=== PATIENT | female | born 1950 | race Two or more races ===

== ENCOUNTER 2020-12-04 04:17 | Emergency (ER) | payer MEDICARE ==
[~2020-12-04] VITALS: Ht 162.6 cm; Wt 71.7 kg
[2020-12-04 05:23] LABS: Hematocrit 35.3 % (36.0-46.0); Hemoglobin 11.7 g/dL (12.2-16.2); Mean Corpuscular Hemoglobin 28.6 pg (28.0-32.0); Mean Corpuscular Hgb Conc. 33.3 g/dL (32.0-36.0); Mean Corpuscular Volume 85.9 fL (80.0-100.0); Platelet Count (auto) 56 10^3/uL (140-450); Red Cell Distribution Width 15.8 % (11.8-14.3); White Blood Cell 9.8 10^3/uL (4.4-10.8)
[2020-12-04 05:28] LABS: Band Neutrophils % (manual) 0; Basophils % (manual) 0 (0.0-2.0); Blast Cells 0; Metamyelocytes % 0; Myelocytes % 0; Promyelocytes % 0; Reactive Lymphocytes 0
[2020-12-04 05:40] LABS: Albumin 3.5 g/dL (3.4-5.0); Anion Gap 8 (5-15); Blood Urea Nitrogen 11 mg/dL (7-18); Calcium 8.4 mg/dL (8.5-10.1); Carbon Dioxide 23 mmol/L (21-32); Chloride 109 mmol/L (98-107); Glucose 150 mg/dL (74-106); Potassium 3.6 mmol/L (3.5-5.1); Sodium 140 mmol/L (136-145)
[2020-12-04 05:41] LABS: INR 1.11 (0.9-1.15); Partial Thromboplastin Time 27.7 sec (23.0-31.2)
[2020-12-04 05:42] LABS: Alanine Aminotransferase 23 U/L (13-56); Aspartate Aminotransferase 19 U/L (15-37); BUN/Creatinine Ratio 15.9; GFR African American 108 mL/min; GFR Non-African American 89 mL/min
[2020-12-04 05:47] LABS: Alkaline Phosphatase 75 U/L (45-117); Bilirubin, Total 0.5 mg/dL (0.2-1.0); Total Protein 6.9 g/dL (6.4-8.2)
[2020-12-04 05:53] LABS: Eosinophils % (manual) 2 (0-7); Lymphocytes % (manual) 21 (10.0-50.0); Monocytes % (manual) 8 (0-12)
[2020-12-04 06:49] VITALS: BP 143/64
[2020-12-04] MEDS ORDERED: ASPirin 81 mg TAB PO ONE (07:00)
== END 2020-12-04 08:32 | disposition home or self-care (01) ==
LOC: EDBD 04:17 → ER 04:17
DX: R07.89 Other chest pain (principal); F41.9 Anxiety disorder, unspecified; E44.1 Mild protein-calorie malnutrition; E11.9 Type 2 diabetes mellitus without complications; I10 Essential (primary) hypertension; Z68.27 Body mass index [BMI] 27.0-27.9, adult; Z20.822 Contact with and (suspected) exposure to COVID-19
CPT/HCPCS: 36415; 71045; 80053; 83880; 84484; 85007; 85027; 85610; 85730; 87426; 93005

== ENCOUNTER 2021-03-04 18:07 | Emergency (ER) | payer MEDICARE ==
[~2021-03-04] VITALS: Ht 157.5 cm; Wt 81.6 kg
[2021-03-04 18:21] VITALS: BP 150/54
== END 2021-03-04 22:46 | disposition left against medical advice (07) ==
LOC: ER 18:07
DX: K13.79 Other lesions of oral mucosa (principal); Z53.21 Procedure and treatment not carried out due to patient leaving prior to being seen by health care provider

== ENCOUNTER 2023-03-09 13:53 | Inpatient (IN) | payer MEDICARE ==
[~2023-03-09] VITALS: Ht 157.5 cm; Wt 78.5 kg
[2023-03-09] MEDS ORDERED: ASPirin 81 mg TAB PO ONE (14:30)
[2023-03-09 14:33] LABS: INR 1.17 (0.9-1.15); Partial Thromboplastin Time 31.4 sec (24.6-33.4)
[2023-03-09 14:40] LABS: Albumin 4.1 g/dL (3.4-5.0); Calcium 8.5 mg/dL (8.5-10.1); Potassium 4.1 mmol/L (3.5-5.1)
[2023-03-09 14:44] LABS: Hematocrit 39.5 % (36.0-46.0); Hemoglobin 13.3 g/dL (12.2-16.2); Mean Corpuscular Hemoglobin 29.7 pg (28.0-32.0); Mean Corpuscular Hgb Conc. 33.6 g/dL (32.0-36.0); Mean Corpuscular Volume 88.5 fL (80.0-100.0); Red Blood Cells 4.46 10^6/uL (4.0-5.20); Red Cell Distribution Width 14.8 % (11.8-14.3); White Blood Cell 17.5 10^3/uL (4.4-10.8)
[2023-03-09 14:45] LABS: BUN/Creatinine Ratio 10.9 (10.0-20.0); Bilirubin, Total 0.7 mg/dL (0.2-1.0); Total Protein 7.3 g/dL (6.4-8.2)
[2023-03-09 15:03] LABS: Band Neutrophils % (manual) 0; Basophils % (manual) 0 (0.0-2.0); Blast Cells 0; Eosinophils % (manual) 0 (0-7); Metamyelocytes % 0; Myelocytes % 0; Promyelocytes % 0; Reactive Lymphocytes 0
[2023-03-09 15:06] LABS: Lymphocytes % (manual) 14 (10.0-50.0); Monocytes % (manual) 18 (0-12)
[2023-03-09] MEDS ORDERED: NITROGLYCERIN 0.2MG/HR TOPICAL PATCH TD ONE (18:45)
[2023-03-09] MEDS ORDERED: MORPHINE SULFATE INJ 2 MG/ml SYRG IV PRN (18:45)
[2023-03-09] MEDS ORDERED: NITROGLYCERIN 0.4 MG SL TAB SL PRN (18:45)
[2023-03-09] MEDS ORDERED: DEXTROSE (50%) 50ML SYRG IV PRN (18:45)
[2023-03-09] MEDS ORDERED: hydrALAZINE HCL 20 MG/ML VL IV PRN (18:45)
[2023-03-09] MEDS ORDERED: ALBUTEROL SULF 2.5 MG/0.5ML(0.5%) NEB SOLN NEB PRN (19:00)
[2023-03-09] MEDS ORDERED: PANTOPRAZOLE 40 MG/10 ML VIAL INJ IV ONE (19:00)
[2023-03-09] MEDS ORDERED: IPRATROPIUM BROM 0.5 MG/2.5ML INH SOL NEB PRN (19:00)
[2023-03-09] MEDS: SODIUM CHLORIDE 0.9% 1,000 ML IV SCH (19:08)
[2023-03-09] MEDS: METOPROLOL TARTRATE 25 MG TAB PO SCH ×2 (19:08→23:50)
[2023-03-09 19:52] VITALS: BP 136/73
[2023-03-09 19:56] LABS: Cholesterol 88 mg/dL (< 200)
[2023-03-09 19:59] LABS: HDL Cholesterol 21 mg/dL (40-59); LDL Cholesterol 52 mg/dL (< 100); Triglycerides 161 mg/dL (< 150)
[2023-03-09] MEDS: ACCU-CHEK COMFORT CURVE STRIP VI SCH (23:38)
[2023-03-09] MEDS: ATORVASTATIN 20 MG TAB PO SCH (23:41)
[2023-03-09] MEDS: InsuLIN REG 1unit/0.01ml Soln (100units/ml) SC SCH (23:44)
[2023-03-10 05:17] LABS: Red Blood Cells 4.16 10^6/uL (4.0-5.20); White Blood Cell 15.2 10^3/uL (4.4-10.8)
[2023-03-10 05:19] LABS: Hematocrit 36.8 % (36.0-46.0); Hemoglobin 12.3 g/dL (12.2-16.2); Mean Corpuscular Hemoglobin 29.5 pg (28.0-32.0); Mean Corpuscular Hgb Conc. 33.4 g/dL (32.0-36.0); Mean Corpuscular Volume 88.4 fL (80.0-100.0); Red Cell Distribution Width 14.8 % (11.8-14.3)
[2023-03-10 05:21] LABS: Basophils % (manual) 0 (0.0-2.0); Blast Cells 0; Eosinophils % (manual) 0 (0-7); Metamyelocytes % 0; Myelocytes % 0; Promyelocytes % 0; Reactive Lymphocytes 0
[2023-03-10 05:35] LABS: Albumin 3.7 g/dL (3.4-5.0); Calcium 8.4 mg/dL (8.5-10.1); Potassium 3.9 mmol/L (3.5-5.1)
[2023-03-10 05:39] LABS: BUN/Creatinine Ratio 11.9 (10.0-20.0); Bilirubin, Total 0.6 mg/dL (0.2-1.0); Total Protein 6.9 g/dL (6.4-8.2)
[2023-03-10] MEDS: ACCU-CHEK COMFORT CURVE STRIP VI SCH ×4 (07:11→22:01)
[2023-03-10] MEDS: InsuLIN REG 1unit/0.01ml Soln (100units/ml) SC SCH ×4 (07:19→22:06)
[2023-03-10 07:20] LABS: Band Neutrophils % (manual) 1; Lymphocytes % (manual) 11 (10.0-50.0); Monocytes % (manual) 38 (0-12)
[2023-03-10] MEDS: PANTOPRAZOLE 40 MG/10 ML VIAL INJ IV SCH (10:13)
[2023-03-10] MEDS: ASPirin 81 mg TAB PO SCH (10:14)
[2023-03-10] MEDS: METOPROLOL TARTRATE 25 MG TAB PO SCH ×2 (10:15→22:01)
[2023-03-10] MEDS: MORPHINE SULFATE INJ 2 MG/ml SYRG IV PRN ×2 (10:26→16:38)
[2023-03-10] MEDS: SODIUM CHLORIDE 0.9% 1,000 ML IV SCH ×2 (11:25→22:01)
[2023-03-10 13:11] VITALS: BP 141/54
[2023-03-10] MEDS ORDERED: CETI10TA2 PO (14:46)
[2023-03-10] MEDS ORDERED: LISI20TA56 PO (14:46)
[2023-03-10] MEDS ORDERED: NITR-52 PO (14:46)
[2023-03-10] MEDS ORDERED: SULI150T38 PO (14:46)
[2023-03-10] MEDS ORDERED: ALBUAER3 IN (14:46)
[2023-03-10 17:00] VITALS: BP 144/56
[2023-03-10 20:00] VITALS: BP 116/47
[2023-03-10] MEDS: metroNIDAZOLE 500MG/100ML 100 ML IV SCH (21:57)
[2023-03-10 22:00] VITALS: BP 116/47
[2023-03-10] MEDS: ATORVASTATIN 20 MG TAB PO SCH (22:00)
[2023-03-11] VITALS (7 sets, daily range): BP systolic 101–133; BP diastolic 44–68
[2023-03-11 06:22] LABS: Hematocrit 34.6 % (36.0-46.0); Hemoglobin 11.6 g/dL (12.2-16.2); Mean Corpuscular Hemoglobin 29.6 pg (28.0-32.0); Mean Corpuscular Hgb Conc. 33.6 g/dL (32.0-36.0); Mean Corpuscular Volume 88.1 fL (80.0-100.0); Red Blood Cells 3.93 10^6/uL (4.0-5.20); Red Cell Distribution Width 14.2 % (11.8-14.3); White Blood Cell 16.9 10^3/uL (4.4-10.8)
[2023-03-11 06:25] LABS: Albumin 3.1 g/dL (3.4-5.0); BUN/Creatinine Ratio 12.6 (10.0-20.0); Calcium 8.3 mg/dL (8.5-10.1); Potassium 3.9 mmol/L (3.5-5.1)
[2023-03-11] MEDS: metroNIDAZOLE 500MG/100ML 100 ML IV SCH ×3 (06:25→21:58)
[2023-03-11] MEDS: ACCU-CHEK COMFORT CURVE STRIP VI SCH ×4 (06:25→22:00)
[2023-03-11 06:28] LABS: Bilirubin, Total 0.7 mg/dL (0.2-1.0); Total Protein 6.5 g/dL (6.4-8.2)
[2023-03-11] MEDS: InsuLIN REG 1unit/0.01ml Soln (100units/ml) SC SCH ×4 (06:30→22:11)
[2023-03-11 06:37] LABS: Band Neutrophils % (manual) 0; Basophils % (manual) 0 (0.0-2.0); Blast Cells 0; Metamyelocytes % 0; Myelocytes % 0; Promyelocytes % 0; Reactive Lymphocytes 0
[2023-03-11 07:44] LABS: Eosinophils % (manual) 1 (0-7); Lymphocytes % (manual) 8 (10.0-50.0); Monocytes % (manual) 30 (0-12)
[2023-03-11] MEDS ORDERED: IOHEXOL 300 MG/ML 100ML BOTTLE IJ ONE (07:59)
[2023-03-11] MEDS ORDERED: ADENOSINE 65 MG in GIVE UN-DILUTED 0 ML IV ONE (09:00)
[2023-03-11] MEDS: cefTRIAXone 1GM/50ML D5W 50 ML IV SCH (09:45)
[2023-03-11] MEDS: PANTOPRAZOLE 40 MG/10 ML VIAL INJ IV SCH (09:45)
[2023-03-11] MEDS: METOPROLOL TARTRATE 25 MG TAB PO SCH ×2 (09:45→21:59)
[2023-03-11] MEDS: ASPirin 81 mg TAB PO SCH (09:45)
[2023-03-11] MEDS ORDERED: ACETAMINOPHEN 500 MG TAB PO PRN (15:00)
[2023-03-11] MEDS ORDERED: MORPHINE SULFATE INJ 2 MG/ml SYRG IV PRN (15:00)
[2023-03-11] MEDS: HYDROcodone-ACET 5/325MG TAB PO PRN (16:04)
[2023-03-11] MEDS: ATORVASTATIN 20 MG TAB PO SCH (21:59)
[2023-03-11] MEDS: SODIUM CHLORIDE 0.9% 1,000 ML IV SCH (22:03)
[2023-03-12 04:40] VITALS: BP 105/56
[2023-03-12 05:22] LABS: Hemoglobin 11.3 g/dL (12.2-16.2); Mean Corpuscular Volume 88.4 fL (80.0-100.0)
[2023-03-12 05:25] LABS: Hematocrit 32.9 % (36.0-46.0); Mean Corpuscular Hemoglobin 30.4 pg (28.0-32.0); Mean Corpuscular Hgb Conc. 34.4 g/dL (32.0-36.0); Red Blood Cells 3.72 10^6/uL (4.0-5.20); Red Cell Distribution Width 14.5 % (11.8-14.3); White Blood Cell 14.5 10^3/uL (4.4-10.8)
[2023-03-12 05:42] LABS: BUN/Creatinine Ratio 14.9 (10.0-20.0); Calcium 8.3 mg/dL (8.5-10.1); Potassium 3.8 mmol/L (3.5-5.1)
[2023-03-12 05:51] LABS: Basophils % (manual) 0 (0.0-2.0); Blast Cells 0; Metamyelocytes % 0; Myelocytes % 0; Promyelocytes % 0; Reactive Lymphocytes 0
[2023-03-12] MEDS: metroNIDAZOLE 500MG/100ML 100 ML IV SCH ×2 (06:35→14:00)
[2023-03-12] MEDS: ACCU-CHEK COMFORT CURVE STRIP VI SCH ×3 (06:36→17:00)
[2023-03-12] MEDS: InsuLIN REG 1unit/0.01ml Soln (100units/ml) SC SCH ×3 (06:41→17:00)
[2023-03-12 08:38] LABS: Band Neutrophils % (manual) 1; Eosinophils % (manual) 1 (0-7); Lymphocytes % (manual) 10 (10.0-50.0); Monocytes % (manual) 25 (0-12)
[2023-03-12 08:59] VITALS: BP 119/59
[2023-03-12] MEDS: PANTOPRAZOLE 40 MG/10 ML VIAL INJ IV SCH (09:06)
[2023-03-12] MEDS: ASPirin 81 mg TAB PO SCH (09:06)
[2023-03-12] MEDS: cefTRIAXone 1GM/50ML D5W 50 ML IV SCH (09:06)
[2023-03-12] MEDS: HYDROcodone-ACET 5/325MG TAB PO PRN (09:07)
[2023-03-12] MEDS: METOPROLOL TARTRATE 25 MG TAB PO SCH (09:08)
[2023-03-12 10:27] LABS: Urine Bacteria NONE SEEN /hpf (None Seen); Urine Blood Negative /uL (Negative); Urine Specific Gravity 1.012 (1.001-1.035); Urine WBC <1 /hpf (0 - 5)
[2023-03-12 13:00] VITALS: BP 106/45
[2023-03-12] MEDS ORDERED: HYDR-4902 PO (13:09)
[2023-03-12] MEDS: SODIUM CHLORIDE 0.9% 1,000 ML IV SCH (13:25)
[2023-03-12 16:57] VITALS: BP 137/61
== END 2023-03-12 17:20 | disposition home or self-care (01) | DRG 189 ==
LOC: ER 13:53 → TELE 18:51 → TELE-EAST 03-10 13:11
PROVIDERS: ADMIT Registered Nurse; ATTEND Nurse Practitioner Acute Care
DX: J96.01 Acute respiratory failure with hypoxia (principal); I24.9 Acute ischemic heart disease, unspecified; D69.3 Immune thrombocytopenic purpura; I25.110 Atherosclerotic heart disease of native coronary artery with unstable angina pectoris; I11.0 Hypertensive heart disease with heart failure; E11.9 Type 2 diabetes mellitus without complications; I50.9 Heart failure, unspecified; J45.909 Unspecified asthma, uncomplicated; E78.5 Hyperlipidemia, unspecified; E66.9 Obesity, unspecified; Z83.3 Family history of diabetes mellitus; Z82.49 Family history of ischemic heart disease and other diseases of the circulatory system; Z80.9 Family history of malignant neoplasm, unspecified; Z87.440 Personal history of urinary (tract) infections; Z68.31 Body mass index [BMI] 31.0-31.9, adult
CPT/HCPCS: 36415; 71045; 74177; 78452; 80048; 80053; 80061; 81001; 82962; 83036; 83735; 83880; 84443; 84484; 85007; 85027; 85379; 85610; 85730; 87040; 87086; 93005; 93017; 93306; 96361; 96374; C9113; G0378; J0153; J0696; J1815; J3490